=== PATIENT | male | born 1970 ===

== ENCOUNTER 2017-02-19 01:38 | Emergency (ER) | payer SELFPAY ==
[2017-02-19 02:32] VITALS: BP 143/73; PULSE 78; RESP 17; TEMP 97.6; O2SAT 100; BMI 22.6
--- NOTE | 2017-02-19 02:33 | ED PDOC ---
HPI: Male Pain Time Seen by Provider: 02/19/17 02:22 Chief Complaint (Provider): UTI History Per: Patient Additional Complaint(s): 46 yo male, no PMH, presents to ED with complaints of burning on urination and foul smelling urine since Tuesday, tonight Pt developed hematuria which prompted ED visit. Pt , expresses no concerns of STIs. Declines testing Past Medical History Reviewed: Historical Data, Nursing Documentation, Vital Signs - Medical History PMH: No Chronic Diseases - Surgical History Surgical History: No Surg Hx - Family History Family History: States: No Known Family Hx - Living Arrangements Living Arrangements: With Family - Social History Current smoker - smoking cessation education provided: No Alcohol: None Drugs: Denies - Home Medications Home Medications: Ambulatory Orders Medication Instructions Recorded Ciprofloxacin [Cipro] 500 mg PO BID #20 tab 02/19/17 - Allergies Allergies/Adverse Reactions: Allergies Allergy/AdvReac Type Severity Reaction Status Date / Time No Known Allergies Allergy Verified 02/19/17 02:26 Review of Systems ROS Statement: Except As Marked, All Systems Reviewed And Found Negative Genitourinary Male: Positive for: Dysuria, Hematuria Physical Exam - Reviewed Nursing Documentation Reviewed: Yes Vital Signs Reviewed: Yes - Physical Exam Appears: Positive for: Well, Non-toxic, No Acute Distress Head Exam: Positive for: ATRAUMATIC, NORMAL INSPECTION, NORMOCEPHALIC Skin: Positive for: Normal Color, Warm, DRY Eye Exam: Positive for: EOMI, Normal appearance, PERRL ENT: Positive for: Normal ENT Inspection Neck: Positive for: Normal, Painless ROM Cardiovascular/Chest: Positive for: Regular Rate, Rhythm Respiratory: Positive for: CNT, Normal Breath Sounds Gastrointestinal/Abdominal: Positive for: Normal Exam, Bowel Sounds, Soft Back: Positive for: Normal Inspection Extremity: Positive for: Normal ROM Neurologic/Psych: Positive for: Alert, Oriented Medical Decision Making Medical Decision Making: Dip (+) leuks and blood Started on Cipro PO Disposition - Clinical Impression Clinical Impression: Urinary tract infection - Patient ED Disposition Is Patient to be Admitted: No - Disposition Disposition: Routine/Home Disposition Time: 04:06 Condition: STABLE Prescriptions: Ciprofloxacin [Cipro] 500 mg PO BID #20 tab Instructions: Urinary Tract Infection in Men (ED) Forms: Into [employer] (Danish) Print Language: PRYDEINIG
[2017-02-19 02:49] LABS: RBC URINE 1403 /hpf (0-3); URINE BACTERIA MOD (<OCC); URINE BILIRUBIN NEGATIVE (NEGATIVE); URINE BLOOD LARGE (NEGATIVE); URINE COLOR AMBER (YELLOW); URINE GLUCOSE (UA) NEG (Normal); URINE KETONE NEGATIVE (NEGATIVE); URINE LEUKOCYTE ESTERASE MOD Leu/uL (Negative); URINE PROTEIN 100 mg/dL (NEGATIVE); URINE UROBILINOGEN 0.2-1.0 mg/dL (0.2-1.0); WBC URINE 1319 /hpf (0-5)
== END 2017-02-19 04:09 | disposition home or self-care (01) ==
LOC: H.ER 01:38
DX: N39.0 Urinary tract infection, site not specified (principal)